=== PATIENT | male | born 1975 | race Caucasian/White ===

== ENCOUNTER 2016-08-03 07:53 | Emergency (ER) | payer OTHER ==
[2016-08-03] MEDS ORDERED: SODIUM CHLORIDE 1,000 ML IV STA (08:06)
[2016-08-03 08:09] VITALS: BP 141/75; PULSE 89; TEMP 99; BMI 24.3
[2016-08-03] MEDS ORDERED: MAG HYDROX/AL HYDROX/SIMETH 30 ML UNIT-DOSE CUP ONE (08:18)
[2016-08-03] MEDS ORDERED: FAMOTIDINE 20 MG/50 ML IVPB 50 ML IVPB ONE ×2 (08:18→08:30)
[2016-08-03] MEDS ORDERED: ACETAMINOPHEN 325 MG TABLET (FP) ONE (08:18)
[2016-08-03] MEDS ORDERED: ONDANSETRON 4 MG/2 ML VIAL ONE (08:18)
--- NOTE | 2016-08-03 08:22 | PDOC ---
History of Present Illness - General Chief Complaint: Pain Stated Complaint: ABD PAIN NAUSEA Time Seen by Provider: 08/03/16 07:54 History Source: Patient Exam Limitations: No Limitations - History of Present Illness Initial Comments: 08/03/16 08:09 41-year-old male with past medical history of gastric ulcer presents with epigastric pain and nausea since yesterday. Patient reported that the symptoms were gradual in onset and was preventing her from eating secondary to nausea and pain. Describes it as a squeezing like pain. Denies vomiting, fevers, chills , diarrhea. Denies sick contacts or recent travels. Denies midsternal chest pain or shortness of breath. Reported that 3 years ago when he had silver symptoms, his symptoms improved with Zofran. Denies prior history of cardiac history but reports that the father has a cardiac history later in his 60s or 70s. Past History - Past Medical History Allergies/Adverse Reactions: Allergies Allergy/AdvReac Type Severity Reaction Status Date / Time aspirin AdvReac Verified 08/03/16 08:12 Home Medications: Ambulatory Orders Ondansetron HCl [Zofran] 4 mg PO Q6H PRN #20 tablet 08/03/16 Pantoprazole Sodium [Protonix] 40 mg PO DAILY #30 tablet. 08/03/16 Ranitidine HCl [Zantac] 150 mg PO BID PRN #20 tablet 08/03/16 Review of Systems - Review of Systems Able to Perform ROS?: Yes Comments:: 08/03/16 08:22 GENERAL/CONSTITUTIONAL: No fever, weakness. HEAD, EYES, EARS, NOSE AND THROAT: No change in vision. No ear pain or discharge. No sore throat. CARDIOVASCULAR: No chest pain or shortness of breath. RESPIRATORY: No cough, wheezing, or hemoptysis. GASTROINTESTINAL: +abdominal pain and nausea. No vomiting, diarrhea, or decreased PO intolerance. GENITOURINARY: No dysuria, frequency, or change in urination. MUSCULOSKELETAL: No joint or muscle swelling or pain. No neck or back pain. SKIN: No rash NEUROLOGIC: No headache, vertigo, loss of consciousness, or change in strength/ sensation. ENDOCRINE: No increased thirst. No abnormal weight change. HEMATOLOGIC/LYMPHATIC: No anemia, easy bleeding, or history of blood clots. ALLERGIC/IMMUNOLOGIC: No hives or skin allergy. *Physical Exam - Physical Exam Comments: 08/03/16 08:23 GENERAL: Awake, alert, and fully oriented, in no acute distress. HEAD: No signs of trauma EYES: PERRLA, EOMI, sclera anicteric, conjunctiva clear ENT: Auricles normal inspection, hearing grossly normal, nares patent, oropharynx clear without exudates. NECK: Normal ROM, supple, no lymphadenopathy, JVD, or masses LUNGS: Breath sounds equal, clear to auscultation bilaterally. No wheezes, and no crackles HEART: Regular rate and rhythm, normal S1 and S2, no murmurs, rubs or gallops ABDOMEN: +TTP epigastric. negative otero. Soft, normoactive bowel sounds. No guarding, no rebound. No masses EXTREMITIES: Normal range of motion, no edema. No clubbing or cyanosis. No cords, erythema, or tenderness NEUROLOGICAL: Cranial nerves II through XII grossly intact. Normal speech, normal gait SKIN: Warm, Dry, normal turgor, no rashes or lesions noted. Heart Score/ECG Review - History History: Slightly suspicious - Electrocardiogram EKG: Normal - Age Age: </= 45 - Risk Factors Risk Factors Heart Score: Yes Positive family hx of cardiac disease Based on the list above the patient has:: 1-2 risk factors - Troponin Troponin: </= normal limit - Score Heart Score - Total: 1 #1 ECG reviewed & interpreted by me at: 08:15 08/03/16 08:23 NSR 73, no std/lara, normal axis, normal intervals, QTC 418 msec. normal ECG ED Treatment Course - LABORATORY CBC & Chemistry Diagram: 08/03/16 08:35 08/03/16 08:35 Medical Decision Making - Medical Decision Making 08/03/16 08:23 This is most likely gastritis. EKG is reassuring. We'll send labs to rule out abdominal issues. I have no suspicion for cardiac issues at this time. We'll trial GERD medications and reassess. 08/03/16 10:00 CBC, BMP 08/03/16 08:35 08/03/16 08:35 CMP Sodium 135 mmol/L (136-145) L 08/03/16 08:35 Potassium 3.9 mmol/L (3.5-5.1) 08/03/16 08:35 Chloride 104 mmol/L (98-107) 08/03/16 08:35 Carbon Dioxide 27 mmol/L (22-28) 08/03/16 08:35 Anion Gap 4 (8-16) L 08/03/16 08:35 BUN 19 mg/dl (7-18) H 08/03/16 08:35 Creatinine 0.8 mg/dl (0.6-1.3) 08/03/16 08:35 Creat Clearance w eGFR > 60 (>60) 08/03/16 08:35 Random Glucose 95 mg/dl (74-106) 08/03/16 08:35 Calcium 8.4 mg/dl (8.4-10.2) 08/03/16 08:35 Total Bilirubin 0.7 mg/dl (0.2-1.0) 08/03/16 08:35 AST 25 U/L (10-42) 08/03/16 08:35 ALT 16 U/L (10-40) 08/03/16 08:35 Alkaline Phosphatase 59 U/L (32-92) 08/03/16 08:35 Creatine Kinase 166 IU/L (38-174) 08/03/16 08:35 CK-MB (CK-2) 1.45 ng/ml (0.3-4.0) 08/03/16 08:35 CK-MB (CK-2) Rel Index 1.5 % (0.0-5.0) 08/03/16 08:35 Troponin I < 0.03 ng/ml (0.03-0.50) L 08/03/16 08:35 Total Protein 6.5 g/dl (6.4-8.3) 08/03/16 08:35 Albumin 3.9 g/dl (3.5-5.0) 08/03/16 08:35 Lipase 32 U/L (22-51) 08/03/16 08:35 Urine Test Results Urine Color Yellow 08/03/16 08:30 Urine Appearance Clear 08/03/16 08:30 Urine pH 6.0 (4.5-8) 08/03/16 08:30 Ur Specific Raymond 1.020 (1.005-1.025) 08/03/16 08:30 Urine Protein Trace (NEGATIVE) 08/03/16 08:30 Urine Glucose (UA) Negative (NEGATIVE) 08/03/16 08:30 Urine Ketones Negative (NEGATIVE) 08/03/16 08:30 Urine Blood Negative (NEGATIVE) 08/03/16 08:30 Urine Nitrite Negative (NEGATIVE) 08/03/16 08:30 Urine Bilirubin Negative (NEGATIVE) 08/03/16 08:30 Ur Leukocyte Esterase Negative (NEGATIVE) 08/03/16 08:30 Pt reports feeling better with GERD medications. Will give patient referral to GI and to a PMD. Return precautions given. I discussed the physical exam findings, ancillary test results and final diagnoses with the patient. I answered all of the patient's questions. The patient was satisfied with the care received and felt comfortable with the discharge plan and treatment plan. The patient will call their primary care physician within 24 hours to arrange follow-up and will return to the Emergency Department with any new, persistant or worsening symptoms. *DC/Admit/Observation/Transfer Diagnosis at time of Disposition: Gastritis Qualifiers: Gastritis type: other gastritis Chronicity: acute Gastritis bleeding: without bleeding Qualified Code(s): K29.00 - Acute gastritis without bleeding - Discharge Dispostion Disposition: HOME Condition at time of disposition: Improved Admit: No - Prescriptions Prescriptions: Pantoprazole Sodium [Protonix] 40 mg PO DAILY #30 tablet. Ranitidine HCl [Zantac] 150 mg PO BID PRN #20 tablet PRN Reason: Gastritis Ondansetron HCl [Zofran] 4 mg PO Q6H PRN #20 tablet PRN Reason: Nausea - Referrals Referrals: Stephan Urias MD [Staff Physician] - Edgar Lara MD [Staff Physician] - Jenaro Palacio MD [Staff Physician] - Ninfa Easton MD [Staff Physician] - - Patient Instructions Printed Discharge Instructions: DI for Gastritis Additional Instructions: Please take Protonix daily. This is a maintenance medication for acid reflux. For additional relief, take 150 mg of Zantac every 12 hours as needed. If you feel nauseous, you may take a tablet of Zofran every 6 hours as needed. Please make an appointment with a primary care physician as well as lease administration analyst.Please take Protonix daily. This is a maintenance medication for acid reflux. For additional relief, take 150 mg of Zantac every 12 hours as needed. If you feel nauseous, you may take a tablet of Zofran every 6 hours as needed. Please make an appointment with a primary care physician as well as lease administration analyst. - Post Discharge Activity Work/School Note: Back to Work
[2016-08-03] MEDS ORDERED: ACETAMINOPHEN 325 MG TABLET (FP) PO ONE (08:30)
[2016-08-03] MEDS ORDERED: MAG HYDROX/AL HYDROX/SIMETH 30 ML UNIT-DOSE CUP PO ONE (08:30)
[2016-08-03] MEDS ORDERED: ONDANSETRON 4 MG/2 ML VIAL IVPB ONE (08:30)
[2016-08-03 08:40] LABS: URINE APPEARANCE Clear; URINE BILIRUBIN Negative (NEGATIVE); URINE BLOOD Negative (NEGATIVE); URINE GLUCOSE (UA) Negative (NEGATIVE); URINE KETONE Negative (NEGATIVE); URINE LEUK ESTERASE Negative (NEGATIVE); URINE NITRITE Negative (NEGATIVE); URINE PROTEIN Trace (NEGATIVE); URINE UROBILINOGEN 0.2 E.U/dl (0.2-1.0)
[2016-08-03 09:17] LABS: BASOPHIL 0.4 % (0-2.0); EOSINOPHIL 1.1 % (0-4.5); MCH 30.3 pg (25.7-33.7); MCHC 33.7 g/dl (32.0-35.9); MEAN CELL VOLUME 89.9 fl (80-96); MEAN PLT VOLUME 8.7 fl (7.5-11.1); NEUTROPHILS 77.8 % (42.8-82.8); PLATELET COUNT 147 K/MM3 (134-434); RDW 12.2 % (11.9-15.9); WHITE BLOOD COUNT 7.3 K/mm3 (4.0-10.0)
[2016-08-03 09:18] LABS: URINE COLOR YELLOW
[2016-08-03 09:36] LABS: CPK(DFH) 166 IU/L (38-174)
[2016-08-03 09:37] LABS: ALBUMIN 3.9 g/dl (3.5-5.0); ALK PHOS 59 U/L (32-92); ANION GAP 4 (8-16); BILIRUBIN,TOTAL 0.7 mg/dl (0.2-1.0); CALCIUM 8.4 mg/dl (8.4-10.2); CO2 27 mmol/L (22-28); COCKROFT - GAULT 127.25; CREATININE 0.8 mg/dl (0.6-1.3); GLUCOSE,RANDOM 95 mg/dl (74-106); SGOT/AST 25 U/L (10-42); SGPT/ALT 16 U/L (10-40); TOT PROT 6.5 g/dl (6.4-8.3)
[2016-08-03 09:53] LABS: TROPONIN I (DFP) < 0.03 ng/ml (0.03-0.50)
[2016-08-03 09:55] LABS: CK MB 1.45 ng/ml (0.3-4.0)
[2016-08-03] MEDS ORDERED: PANTOPRAZOLE 40 MG TABLET (FP) PO ONE (10:04)
[2016-08-03] MEDS ORDERED: PANTOPRAZOLE 40 MG TABLET (FP) ONE ×2 (10:06→10:08)
--- NOTE | 2016-08-03 13:39 | EKG ---
Test Reason : Blood Pressure : / mmHG Vent. Rate : 073 BPM Atrial Rate : 073 BPM P-R Int : 132 ms QRS Dur : 084 ms QT Int : 380 ms P-R-T Axes : 076 075 050 degrees QTc Int : 418 ms NORMAL SINUS RHYTHM WITH SINUS ARRHYTHMIA NORMAL ECG NO PREVIOUS ECGS AVAILABLE Confirmed by LAURA ROSALES, BUSHRA ([id number]) on 08/03/2016 1:39:17 PM Referred By: ANABELL MATIAS Confirmed By:BUSHRA SANCHEZ MD
== END 2016-08-03 10:18 | disposition home or self-care (01) ==
LOC: FER 07:53
PROC: 3E033GC Introduction of Other Therapeutic Substance into Peripheral Vein, Percutaneous Approach (ICD-10-PCS; principal; 2016-08-03)
PROC: 3E0337Z Introduction of Electrolytic and Water Balance Substance into Peripheral Vein, Percutaneous Approach (ICD-10-PCS; 2016-08-03)
DX: K29.00 Acute gastritis without bleeding (principal)
CPT/HCPCS: 36415; 80053; 81003; 82550; 82553; 83690; 84484; 85025; 93005; 96361; 96365; 96375; 99282-25